=== PATIENT | female | born 2000 | race American Indian/Alaskan Native ===

== ENCOUNTER 2022-11-26 20:08 | Emergency (ER) | payer OTHER ==
--- NOTE | 2022-11-26 20:40 | ED Physician Documentation ---
PD HPI ABD PAIN - Stated complaint Stated Complaint: FEMALE - Chief complaint Chief Complaint: Abd Pain - History obtained from History obtained from: Patient - Additional information Additional information: Previously healthy 22-year-old woman has had for the last 2 to 3 weeks vaginal pain with greenish discharge that is not malodorous. She has especially pain during sex. She is not using control. Have been irregular which is not uncommon. PD PAST MEDICAL HISTORY - Present Medications Home Medications: Ambulatory Orders Medication Instructions Recorded Confirmed cephALEXin [Keflex] 500 mg PO Q6H #20 cap 11/26/22 metroNIDAZOLE [Flagyl] 500 mg PO BID 7 Days #14 tablet 11/26/22 - Allergies Allergies/Adverse Reactions: Allergies Allergy/AdvReac Type Severity Reaction Status Date / Time No Known Drug Allergies Allergy Verified 11/26/22 20:23 PD ED PE NORMAL - Vitals Vital signs reviewed: Yes - General General: Alert and oriented X 3, No acute distress - Abdomen Abdomen: Normal bowel sounds, Non tender - Female Female : Other (Done with Liliana IGLESIAS present and chaperoning. Significant greenish cheesy thick discharge in the vault. Nontender.) Results - Vitals Vitals: Vital Signs - 24 hr 11/26/22 11/26/22 20:20 22:10 Temperature 36.6 C 37.1 C Heart Rate 67 64 Respiratory 14 17 Rate Blood Pressure 131/93 H 120/69 O2 Saturation 100 100 Oxygen O2 Source Room air - Labs Labs: Microbiology 11/26/22 20:51 Wet Prep - Final Vaginal Laboratory Tests 11/26/22 11/26/22 11/26/22 20:30 20:30 20:51 WBC RBC Hgb Hct MCV MCH MCHC RDW Plt Count MPV Neut # (Auto) Lymph # (Auto) [place] # (Auto) Eos # (Auto) Baso # (Auto) Absolute Nucleated RBC Nucleated RBC % Sodium Potassium Chloride Carbon Dioxide Anion Gap BUN Creatinine Estimated GFR (MDRD) Glucose Calcium Total Bilirubin AST ALT Alkaline Phosphatase Total Protein Albumin Globulin Albumin/Globulin Ratio Lipase Urine Color YELLOW Urine Clarity HAZY Urine pH 6.0 Ur Specific [place] 1.010 Urine Protein NEGATIVE Urine Glucose (UA) NEGATIVE Urine Ketones NEGATIVE Urine Occult Blood NEGATIVE Urine Nitrite NEGATIVE Urine Bilirubin NEGATIVE Urine Urobilinogen 0.2 (NORMAL) Ur Leukocyte Esterase LARGE H Urine RBC 0-5 Urine WBC >25 H Ur Squamous Epith Cells FEW Squamous Amorphous Sediment Few Urine Bacteria Rare Ur Microscopic Review INDICATED Urine Culture Comments INDICATED Urine HCG, Qual POSITIVE C. glabrata (PCR) UNRESOLVED A C. krusei (PCR) UNRESOLVED A Princess species DNA UNRESOLVED A Chlam trachomat DNA PCR N.gonorrhoeae DNA (PCR) T. vaginalis (PCR) UNRESOLVED A Bact Vaginosis (PCR) UNRESOLVED A 11/26/22 11/26/22 11/26/22 20:51 20:55 20:55 WBC 12.4 H RBC 4.63 Hgb 13.2 Hct 40.8 MCV 88.1 MCH 28.5 MCHC 32.4 RDW 13.5 Plt Count 301 MPV 10.0 Neut # (Auto) 8.4 H Lymph # (Auto) 2.6 [place] # (Auto) 0.8 Eos # (Auto) 0.5 Baso # (Auto) 0.1 Absolute Nucleated RBC 0.00 Nucleated RBC % 0.0 Sodium 136 Potassium 3.1 L Chloride 102 Carbon Dioxide 25 Anion Gap 9.0 BUN 5 L Creatinine 0.3 L Estimated GFR (MDRD) 284 Glucose 101 H Calcium 9.2 Total Bilirubin 0.5 AST 16 ALT 14 Alkaline Phosphatase 42 Total Protein 7.7 Albumin 4.6 Globulin 3.1 Albumin/Globulin Ratio 1.5 Lipase 37 Urine Color Urine Clarity Urine pH Ur Specific [place] Urine Protein Urine Glucose (UA) Urine Ketones Urine Occult Blood Urine Nitrite Urine Bilirubin Urine Urobilinogen Ur Leukocyte Esterase Urine RBC Urine WBC Ur Squamous Epith Cells Amorphous Sediment Urine Bacteria Ur Microscopic Review Urine Culture Comments Urine HCG, Qual C. glabrata (PCR) C. krusei (PCR) Princess species DNA Chlam trachomat DNA PCR NEGATIVE N.gonorrhoeae DNA (PCR) NEGATIVE T. vaginalis (PCR) TNP Bact Vaginosis (PCR) PD Medical Decision Making - ED course ED course: 22-year-old presents with suprapubic pain and vaginal burning and discharge. Exam consistent with bacterial vaginosis and this is consistent with her wet mount. Also has evidence of a cystitis. Will treat with Keflex and Flagyl. She is found to be in early . She voices a desire not to be . We discussed her options and [facility] would [facility]. Departure - Departure Disposition: 01 Home, Self Care Clinical Impression: Bacterial vaginosis Urinary tract infection Qualifiers: Urinary tract infection type: acute cystitis Hematuria presence: without hematuria Qualified Code(s): N30.00 - Acute cystitis without hematuria Condition: Good Record reviewed to determine appropriate education?: Yes Instructions: ED UTI Cystitis Female, ED Vaginosis Bacterial Prescriptions: metroNIDAZOLE [Flagyl] 500 mg PO BID 7 Days #14 tablet cephALEXin [Keflex] 500 mg PO Q6H #20 cap Comments: You were seen today for a urinary tract infection associated with bacterial vaginosis. The antibiotics will be very helpful for that you should feel much better over the next couple of days. We did find you to be today. You have voiced a desire not to be . If you would like you can discuss this with the [facility], the closest is in [place], the phone number is [phone]. The address is: [address] [place] [id number] Discharge Date/Time: 11/26/22 22:11
[2022-11-26 21:03] LABS: BILIRUBIN,URINE NEGATIVE (NEGATIVE); GLUCOSE, URINE (UA) NEGATIVE (NEGATIVE); KETONES,URINE (UA) NEGATIVE (NEGATIVE); LEUKOCYTE ESTERASE, URINE LARGE (NEGATIVE); NITRITE,URINE NEGATIVE (NEGATIVE); OCCULT BLOOD,URINE NEGATIVE (NEGATIVE); PROTEIN,URINE NEGATIVE (NEGATIVE); UROBILINOGEN,URINE 0.2 (NORMAL) E.U./dL (NORMAL)
[2022-11-26 21:05] LABS: HCG UR QUAL POSITIVE
[2022-11-26 21:06] LABS: CLARITY,URINE HAZY (CLEAR)
[2022-11-26 21:06] LABS: BASOPHILS # (AUTO) 0.1 10^3/uL (0.0-0.1); BASOPHILS % (AUTO) 0.9 %; EOSINOPHILS # (AUTO) 0.5 10^3/uL (0.0-0.7); EOSINOPHILS % (AUTO) 3.9 %; HCT - HEMATOCRIT 40.8 % (37.0-47.0); HGB - HEMOGLOBIN 13.2 g/dL (12.0-16.0); LYMPHOCYTES # (AUTO) 2.6 10^3/uL (1.5-3.5); LYMPHOCYTES % (AUTO) 21.2 %; MEAN CORPUSCULAR HEMOGLOBIN 28.5 pg (27.0-31.0); MEAN CORPUSCULAR HGB CONC 32.4 g/dL (32.0-36.0); MEAN CORPUSCULAR VOLUME 88.1 fL (81.0-99.0); MONOCYTES # (AUTO) 0.8 10^3/uL (0.0-1.0); MONOCYTES % (AUTO) 6.1 %; NEUTROPHILS # (AUTO) 8.4 10^3/uL (1.5-6.6); NEUTROPHILS % (AUTO) 67.7 %; PLT - PLATELET COUNT 301 10^3/uL (130-450); RED BLOOD COUNT 4.63 10^6/uL (4.20-5.40); RED CELL DISTRIBUTION WIDTH 13.5 % (12.0-15.0); WHITE BLOOD COUNT 12.4 x10^3/uL (4.8-10.8)
[2022-11-26 21:13] LABS: ALBUMIN 4.6 g/dL (3.2-5.5); ALBUMIN/GLOBULIN RATIO 1.5 (1.0-2.2); BILIRUBIN,TOTAL 0.5 mg/dL (0.2-1.0); CALCIUM 9.2 mg/dL (8.5-10.3); CREATININE 0.3 mg/dL (0.4-1.0); POTASSIUM 3.1 mmol/L (3.5-5.0); TOTAL PROTEIN 7.7 g/dL (6.7-8.2)
[2022-11-26 21:19] LABS: AMORPHOUS SEDIMENT,UR Few /LPF; BACTERIA,URINE Rare /HPF (None Seen); RBC,URINE 0-5 /HPF (0-5); SQUAMOUS EPITHELIAL CELL,UR FEW Squamous (<= Few); WBC,URINE >25 /HPF (0-5)
[2022-11-26] MEDS ORDERED: metroNIDAZOLE 250 MG TABLET PO STA (21:21)
[2022-11-26] MEDS ORDERED: cephALEXin 250 MG CAPSULE PO STA (21:21)
[2022-11-26 22:11] VITALS: BP 120/69
[2022-11-27 00:48] LABS: CHLAMYDIA TRACHOMATIS DNA NEGATIVE (NEGATIVE); NEISSERIA GONORRHOEAE DNA NEGATIVE (NEGATIVE)
[2022-11-27 01:29] LABS: BACTERIAL VAGINOSIS DNA UNRESOLVED (NEGATIVE); CANDIDA GLABRATA DNA UNRESOLVED (NEGATIVE); CANDIDA GROUP DNA UNRESOLVED (NEGATIVE); CANDIDA KRUSEI DNA UNRESOLVED (NEGATIVE); TRICHOMONAS VAGINALIS DNA UNRESOLVED (NEGATIVE)
== END 2022-11-26 22:11 | disposition home or self-care (01) ==
LOC: ED 20:08
DX: N30.00 Acute cystitis without hematuria (principal); N76.0 Acute vaginitis; B96.89 Other specified bacterial agents as the cause of diseases classified elsewhere
CPT/HCPCS: 36415; 80053; 81001; 81025; 81514; 83690; 85025; 87086; 87210; 87491; 87591; 99281; 99283; A9270; 81003; 87661

== ENCOUNTER 2023-01-19 20:14 | Emergency (ER) | payer OTHER ==
[2023-01-19] MEDS ORDERED: cefTRIAXone 500 MG VIAL IM STA (20:54)
[2023-01-19] MEDS ORDERED: LIDOCAINE 1% 2 ML VIAL MC ONE (20:54)
[2023-01-19 20:56] LABS: BILIRUBIN,URINE NEGATIVE (NEGATIVE); GLUCOSE, URINE (UA) NEGATIVE (NEGATIVE); KETONES,URINE (UA) NEGATIVE (NEGATIVE); LEUKOCYTE ESTERASE, URINE NEGATIVE (NEGATIVE); NITRITE,URINE NEGATIVE (NEGATIVE); OCCULT BLOOD,URINE NEGATIVE (NEGATIVE); PROTEIN,URINE NEGATIVE (NEGATIVE); UROBILINOGEN,URINE 0.2 (NORMAL) E.U./dL (NORMAL)
--- NOTE | 2023-01-19 20:56 | ED Physician Documentation ---
History of Present Illness - Stated complaint Stated Complaint: FEM - Chief complaint Chief Complaint: General - Additonal information Additional information: 22-year-old female presents emergency department for evaluation of vulvovaginal erythema and pain as well as 2 days of vaginal yellow discharge. Patient was last sexually active about 1 week ago with her partner. They do not use condoms. She reports monogamy. Denies any history of STI. No dyspareunia. She states last month she was treated with Flagyl for bacterial vaginosis. She thought that it had improved until about 3 days ago when she began having a lot of yellow vaginal discharge. Yesterday afternoon she shaved her vulvovaginal area with a razor and this morning she has significant erythema and tenderness in the vulvar area. Review of Systems Constitutional: denies: Fever : reports: Other (Vaginal discharge, vulvar erythema) PD PAST MEDICAL HISTORY - Past Medical History Past Medical History: Yes Cardiovascular: None Respiratory: None Neuro: None Endocrine/Autoimmune: None GI: None ELECTRONIC GAME DEVELOPER: Other : None HEENT: None Psych: None Musculoskeletal: None Derm: None - Past Surgical History Past Surgical History: No - Present Medications Home Medications: Ambulatory Orders Medication Instructions Recorded Confirmed Doxycycline Hyclate 100 mg PO BID #14 cap 01/19/23 Fluconazole 150 mg PO DAILY #3 tablet 01/19/23 metroNIDAZOLE [Flagyl] 500 mg PO BID 7 Days #14 tablet 01/19/23 - Allergies Allergies/Adverse Reactions: Allergies Allergy/AdvReac Type Severity Reaction Status Date / Time No Known Drug Allergies Allergy Verified 01/19/23 20:24 - Social History Does the pt smoke?: No Smoking Status: Never smoker Does the pt drink ETOH?: No Does the pt have substance abuse?: No - Immunizations Immunizations are current?: Yes - POLST Patient has POLST: No PD ED PE EXPANDED - General General: Alert, No acute distress - Abdomen Abdomen: Normal Bowel sounds. No: Tender to palpation - Female Female : Purchasing And Claims Supervisor present (Pat IGLESIAS), Other (Significant vulvar erythema and mild induration most consistent with cellulitis. Speculum exam revealed a large amount of yellow cottage cheese type discharge in the vault. There was no adnexal or CMT tenderness. No discharge seen coming from the uterus.). No: CMT, Adnexal Mass, Adnexal Tenderness Results - Vitals Vitals: Vital Signs - 24 hr 01/19/23 01/19/23 01/19/23 20:23 20:41 21:28 Temperature 37.6 C Heart Rate 84 Respiratory 18 17 17 Rate Blood Pressure 131/89 H O2 Saturation 99 Oxygen O2 Source Room air - Labs Labs: Microbiology 01/19/23 20:40 Wet Prep - Final Genital - Vaginal Laboratory Tests 01/19/23 01/19/23 20:33 20:40 HCG, Quant 1.78 Urine Color YELLOW Urine Clarity CLEAR Urine pH 7.0 Ur Specific [place] 1.025 Urine Protein NEGATIVE Urine Glucose (UA) NEGATIVE Urine Ketones NEGATIVE Urine Occult Blood NEGATIVE Urine Nitrite NEGATIVE Urine Bilirubin NEGATIVE Urine Urobilinogen 0.2 (NORMAL) Ur Leukocyte Esterase NEGATIVE Ur Microscopic Review NOT INDICATED Urine Culture Comments NOT INDICATED Departure - Departure Disposition: 01 Home, Self Care Clinical Impression: Vulval cellulitis, Yeast infection Condition: Stable Record reviewed to determine appropriate education?: Yes Prescriptions: Doxycycline Hyclate 100 mg PO BID #14 cap metroNIDAZOLE [Flagyl] 500 mg PO BID 7 Days #14 tablet Fluconazole 150 mg PO DAILY #3 tablet Comments: You are seen today in the emergency department because you have been having 2 to 3 days of yellow vaginal discharge. You also shaved your vulvar/vaginal area yesterday and now have a lot of swelling and redness. It looks like you have developed a vulvar infection or cellulitis after shaving. I recommend you stop shaving. I would apply an antibiotic ointment such as bacitracin to your vaginal area to help with pain and reduce infection. But to treat the infection I am starting you on doxycycline. We did do some swabs of your vaginal canal. It does look as though you have a yeast infection. I think you also have bacterial vaginosis. In order to treat these 2 infections I am starting you on medication called Flagyl which she will take twice daily for the next week. In order to treat the yeast infection I am prescribing 3 fluconazole tablets. You should take your first dose tomorrow when you fill the medications. Take the second fluconazole tablet after you have been on the antibiotics for 4 days. Take your third tablet on day 8 or 9. With these medications I would expect improved symptoms in regards to the discharge as well as the redness and swelling in your vulvar area. Return to the ER if you are having worsening symptoms or develop any fevers.
[2023-01-19 21:05] LABS: CLARITY,URINE CLEAR (CLEAR)
[2023-01-19 21:46] VITALS: BP 119/80
[2023-01-19 23:34] LABS: CHLAMYDIA TRACHOMATIS DNA NEGATIVE (NEGATIVE); TRICHOMONAS VAGINALIS DNA NEGATIVE (NEGATIVE)
[2023-01-19 23:35] LABS: NEISSERIA GONORRHOEAE DNA NEGATIVE (NEGATIVE)
== END 2023-01-19 22:05 | disposition home or self-care (01) ==
LOC: ED 20:14
DX: N76.2 Acute vulvitis (principal); B37.9 Candidiasis, unspecified
CPT/HCPCS: 36415; 81001; 81003; 84702; 87086; 87210; 87491; 87591; 87661; 96372; 99283

== ENCOUNTER 2023-05-19 08:00 | Outpatient (CLI) | payer OTHER ==
[2023-05-20 12:45] LABS: CHLAMYDIA TRACHOMATIS DNA NEGATIVE (NEGATIVE); NEISSERIA GONORRHOEAE DNA NEGATIVE (NEGATIVE)
[2023-05-20 14:44] LABS: BACTERIAL VAGINOSIS DNA POSITIVE (NEGATIVE); CANDIDA GROUP DNA POSITIVE (NEGATIVE); CANDIDA KRUSEI DNA NEGATIVE (NEGATIVE); TRICHOMONAS VAGINALIS DNA NEGATIVE (NEGATIVE)
[2023-05-20 14:45] LABS: CANDIDA GLABRATA DNA NEGATIVE (NEGATIVE)
== END 2023-05-19 23:59 | disposition home or self-care (01) ==
LOC: LAB.S 08:00
PROVIDERS: ATTEND Physician Assistant Medical
DX: N76.0 Acute vaginitis (principal)
CPT/HCPCS: 81514; 87491; 87591; 87661